=== PATIENT | female | born 1995 | race Caucasian/White ===

== ENCOUNTER 2025-03-06 18:00 | Emergency (ER) | payer OTHER ==
[~2025-03-06] VITALS: Ht 160 cm; Wt 56.7 kg
[2025-03-06] MEDS ORDERED: AMOX/CLAVULANATE 875 MG TABLET ONE (18:38)
[2025-03-06] MEDS ORDERED: BACI/NEOM/POLY B OINT PKT 1 UDPKT PACKET ONE (18:38)
[2025-03-06] MEDS: AMOX/CLAVULANATE 875 MG TABLET PO ONE (18:40)
[2025-03-06] MEDS: BACI/NEOM/POLY B OINT PKT 1 UDPKT PACKET TP ONE (18:40)
[2025-03-06] MEDS ORDERED: AMOX-430 PO (19:20)
[2025-03-06 19:30] VITALS: BP 141/83; TEMP 98.2; O2SAT 98
== END 2025-03-06 19:37 | disposition home or self-care (01) ==
LOC: ER 18:18
DX: S61.452A Open bite of left hand, initial encounter (principal); W54.0XXA Bitten by dog, initial encounter; Y93.89 Activity, other specified; Y92.830 Public park as the place of occurrence of the external cause; Y99.8 Other external cause status
CPT/HCPCS: 99283; 73130; A6403